=== PATIENT | female | born 1985 | race Caucasian/White ===

== ENCOUNTER 2019-05-19 08:22 | Outpatient (CLI) ==
[2019-05-19] MEDS ORDERED: SERT100T32 PO (08:44)
== END 2019-05-19 23:59 | disposition home or self-care (01) ==
LOC: STAR 08:22
PROVIDERS: ATTEND Thoracic Surgery (Cardiothoracic Vascular Surgery)
DX: Z02.9 Encounter for administrative examinations, unspecified (principal)

== ENCOUNTER 2019-05-28 05:49 | Day surgery (SDC) | payer BC ==
[~2019-05-28] VITALS: Ht 157.5 cm; Wt 94.1 kg
[~2019-05-28 05:49] MED LIST: SERT100T32 PO
[2019-05-28] MEDS ORDERED: LACTATED RINGERS 1,000 ML IV SCH ×2 (06:45→08:22)
[2019-05-28] MEDS ORDERED: BUPIVACAINE/PF 0.5% ONE (06:47)
[2019-05-28] MEDS ORDERED: EPINEPHRINE 1 MG/ML, 1ML ONE (06:47)
[2019-05-28 06:53] VITALS: BP 121/86
[2019-05-28] MEDS ORDERED: INDOCYANINE GREEN 25 MG VIAL ONE (07:01)
[2019-05-28] MEDS ORDERED: APREPITANT 40 MG CAPSULE ONE (07:13)
[2019-05-28] MEDS ORDERED: GABAPENTIN 300 MG CAPSULE ONE (07:13)
[2019-05-28 07:19] LABS: HCG UR SG 1.022 (1.003-1.030)
[2019-05-28] MEDS ORDERED: MIDAZOLAM 1 MG/ML, 2ML ONE (07:23)
[2019-05-28] MEDS ORDERED: FENTANYL PF 250 MCG/5ML ONE (07:24)
[2019-05-28] MEDS ORDERED: INDOCYANINE GREEN 25 MG VIAL IVPush ONE (07:30)
[2019-05-28] MEDS ORDERED: PHENYLEPHRINE 10 MG/ML ONE (07:32)
[2019-05-28] MEDS ORDERED: KETOROLAC 30 MG/1 ML ONE (07:32)
[2019-05-28] MEDS ORDERED: DEXAMETHASONE 4 MG/ML, 1ML ONE (07:55)
[2019-05-28] MEDS ORDERED: ONDANSETRON 2MG/ML, 2ML ONE (07:55)
[2019-05-28] MEDS ORDERED: LIDOCAINE-MPF 2% ,5ML ONE (07:55)
[2019-05-28] MEDS ORDERED: ROCURONIUM 10MG/ML,5ML ONE (07:55)
[2019-05-28] MEDS ORDERED: CEFOTETAN PMX 2GM/50ML 50 ML ONE (07:55)
[2019-05-28] MEDS ORDERED: PROPOFOL 10 MG/ML, 20ML ONE (07:55)
[2019-05-28] MEDS ORDERED: PROMETHAZINE 25 MG/ML, 1ML IV PRN (08:00)
[2019-05-28] MEDS ORDERED: ACETAMINOPHEN 325 MG TABLET PO PRN (08:00)
[2019-05-28] MEDS ORDERED: HYDROmorphone 2 MG/ML, 1ML IVPush PRN (08:00)
[2019-05-28] MEDS ORDERED: MEPERIDINE/PF 25MG/ML,1ML IVPush PRN (08:00)
[2019-05-28] MEDS ORDERED: hydrALAzine 20 MG/ML, 1ML IV PRN (08:00)
[2019-05-28] MEDS ORDERED: OXYcodone 5 MG/5 ML ORAL.SOL UDC PO PRN (08:00)
[2019-05-28] MEDS ORDERED: SUGAMMADEX 200 MG/2 ML IVPush ONE (08:04)
[2019-05-28] MEDS ORDERED: morphine SULFATE 10 MG/ML, 1ML IVPush PRN (08:30)
[2019-05-28] MEDS ORDERED: HYDROcodone/APAP 5/325 TABLET PO PRN (08:30)
[2019-05-28] MEDS ORDERED: ONDANSETRON 2MG/ML, 2ML IVPush PRN (08:30)
[2019-05-28] MEDS ORDERED: ACETAMINOPHEN 650 MG/20.3 ML UDC ONE (08:34)
[2019-05-28] MEDS ORDERED: FENTANYL PF 100 MCG/2ML ONE (08:34)
[2019-05-28] MEDS ORDERED: OXYcodone 5 MG/5 ML ORAL.SOL UDC ONE (08:35)
[2019-05-28] MEDS ORDERED: MEPERIDINE/PF 25MG/ML,1ML ONE (08:35)
[2019-05-28] MEDS: FENTANYL PF 100 MCG/2ML IV PRN ×4 (08:43→09:11)
== END 2019-05-28 11:00 | disposition home or self-care (01) ==
LOC: OUT 05:49
PROVIDERS: ATTEND Thoracic Surgery (Cardiothoracic Vascular Surgery)
DX: K80.10 Calculus of gallbladder with chronic cholecystitis without obstruction (principal); K82.8 Other specified diseases of gallbladder; K66.0 Peritoneal adhesions (postprocedural) (postinfection); F32.9 Major depressive disorder, single episode, unspecified; E66.01 Morbid (severe) obesity due to excess calories; R13.10 Dysphagia, unspecified; F17.210 Nicotine dependence, cigarettes, uncomplicated; Z68.37 Body mass index [BMI] 37.0-37.9, adult; Z72.89 Other problems related to lifestyle; Z79.899 Other long term (current) drug therapy; Z98.84 Bariatric surgery status
CPT/HCPCS: 47562; 81025; 88304; J0171; J1100; J1885; J2175; J2250; J2270; J2370; J2405; J2704; J3010; J3490; J7120; J8501